=== PATIENT | female | born 1950 | race Caucasian/White ===

== ENCOUNTER 2016-05-04 17:32 | Emergency (ER) | payer BC, MEDICARE ==
--- NOTE | 2016-05-04 18:23 | ED.PDOC ---
History of Present Illness - General Source: patient Exam Limitations: no limitations Additional Information: PT REPORTS TO ED AFTER BEING SENT HERE BY HER PCP WHO NOTED ABNORMAL LABS SUCH ELEVATED BILIRUBIN AND ELEVATED LIVER ENZYMES. PT REPORTS A 5 DAY HISTORY OF INTERMITTENT DIARRHEA, UPPER ABDOMINAL PAIN, BLOATING, AND GAS AFTER EATING AT AN [employer] N[employer]. PT REPORTS THAT SYMPTOMS BEGAN UPON RETURNING HOME FROM [facility]. PT MADE ARRANGEMENTS TO SEE HER PCP EVEN THOUGH SYMPTOMS HAD BEEN GRADUALLY IMPROVING AFTER A FRIEND NOTICED HER EYES WERE JAUNDICED. - History of Present Illness Timing/Duration: 1 week, intermittent Severity: moderate Improving Factors: nothing Worsening Factors: nothing Associated Symptoms: loss of appetite, other - JAUNDICE AND CHANGE IN THE COLOR OF HER URINE. <Rosaura Naylor - Last Filed: 05/04/16 18:20> <Nena Campoverde - Last Filed: 05/04/16 20:28> - General Chief Complaint: Abdominal Pain Stated Complaint: ABNORMAL LABS Time Seen by Provider: 05/04/16 17:59 - History of Present Illness Allergies/Adverse Reactions: Allergies NO KNOWN ALLERGY Allergy (Verified 07/09/12 11:49) Home Medications: Ambulatory Orders Amlodipine Besylate [Norvasc] 5 mg PO HS #0 07/05/12 HYDROcodone 7.5MG/APAP 325MG [[place] 7.5/325] 1 ea PO Q6H PRN #25 tab 07/05/12 Ibuprofen [Motrin] 600 mg PO Q6H PRN #30 tab 07/05/12 Lisinopril 5 mg PO AM #0 07/05/12 Magnesium Hydroxide [Milk Of Magnesia] 30 ml PO DAILY PRN #0 ud 07/05/12 Metoprolol Tartrate 50 mg PO BID #0 07/05/12 Potassium Chloride Tab [Micro-K] 10 meq PO DAILY #0 tab 07/05/12 Review of Systems - Review of Systems Constitutional: Denies: chills, fever EENTM: Denies: nose congestion, throat pain Respiratory: Denies: cough, short of breath Cardiology: Denies: chest pain, palpitations Gastrointestinal/Abdominal: States: see HPI, abdominal pain, diarrhea. Denies: vomiting Genitourinary: States: see HPI, other - CHANGE IN COLOR OF URINE. Denies: dysuria, hematuria Musculoskeletal: Denies: joint pain, joint swelling Skin: Denies: lesions, rash <Rosaura Naylor - Last Filed: 05/04/16 18:20> Past Medical History (General) - Patient Medical History Hx Cardiac Disorders: No Hx Congestive Heart Failure: No Hx Diabetes: No Hx MRSA: No Other Surgeries:: HYSTERECTOMY, BENIGN ABDOMINAL TUMOR REMOVAL. - Social History Hx Tobacco Use: No <Rosaura Naylor - Last Filed: 05/04/16 18:20> Family Medical History - Family History Mother Family History: Unknown <Nena Campoverde - Last Filed: 05/04/16 20:28> Physical Exam - Physical Exam General Appearance: Alert, No apparent distress Eye Exam: bilateral scleral icterus Ears, Nose, Throat: hearing grossly normal Neck: non-tender, normal inspection Respiratory: lungs clear, normal breath sounds, no respiratory distress Cardiovascular/Chest: regular rate, rhythm, no murmur Gastrointestinal/Abdominal: soft, tenderness - MILD EPIGASTRIC Back Exam: normal inspection, no CVA tenderness Extremity: normal range of motion, non-tender, normal inspection Neurologic: normal mood/affect, oriented x 3 Skin Exam: jaundice - SLIGHTLY <Rosaura Naylor - Last Filed: 05/04/16 18:20> Progress - Progress Progress: 05/04/16 20:26 I recommended transfer to [place] with testing done tomorrow, however Patient declined. I have instructed Patient that this is something that needs to be addressed IMMEDIATELY, and she MUST see Dr. Garza tomorrow. Patient agrees to call office in AM. I have sent referral to Dr. Garza. - Results/Orders Results/Orders: 05/04/16 17:55 Temperature 98.6 F Pulse Rate [ 77 LEFT HAND] Respiratory 20 Rate Blood Pressure 174/91 [LEFT BRACHIAL] O2 Sat by Pulse 98 Oximetry 05/04/16 18:02 Hold Metformin x 48Hrs [id number] Labs from PCP: WBC 6.3 Hb 12.6 Hct 35.8 Plt 315 Total bili 6.4 ALT 245 AST [address] ABD/PELV WITH CONTRAST: DILITATION OF COMMON BILE DUCT AND INTRAHEPATIC DUCT RADICALS. - EKG/XRAY/CT CT: Abd/Pelv - results in Results/Orders CT Ordered: Yes CT Interpretation Call Back: No - Report sent <Jude Campoverdea Darrel - Last Filed: 05/04/16 20:28> Departure <Henry Naylormarc Edmundo - Last Filed: 05/04/16 18:20> - Departure Time of Disposition: 20:24 Diet: bland diet <Nena Campoverde Darrel - Last Filed: 05/04/16 20:28> - Departure Clinical Impression: Common bile duct dilatation, Paucity of intrahepatic bile ducts, Total bilirubin, elevated, Elevated liver enzymes Disposition: Discharge to Home or Self Care Condition: Good Departure Forms: ED Discharge - Pt. Copy, Patient Portal Self Enrollment Instructions: DI for Abdominal Pain-Adult Referrals: Erick Garza MD [Primary Care Provider] - 1-2 Days (Needs appt. 05/05/16-- dilitation common bile duct, intrahepatic duct radicals. Patient declined transfer for futher studies. Requires ultrasound vs. MRCP.) Home Medications: Ambulatory Orders Amlodipine Besylate [Norvasc] 5 mg PO HS #0 07/05/12 HYDROcodone 7.5MG/APAP 325MG [[place] 7.5/325] 1 ea PO Q6H PRN #25 tab 07/05/12 Ibuprofen [Motrin] 600 mg PO Q6H PRN #30 tab 07/05/12 Lisinopril 5 mg PO AM #0 07/05/12 Magnesium Hydroxide [Milk Of Magnesia] 30 ml PO DAILY PRN #0 ud 07/05/12 Metoprolol Tartrate 50 mg PO BID #0 07/05/12 Potassium Chloride Tab [Micro-K] 10 meq PO DAILY #0 tab 07/05/12 Additional Instructions: MUST follow up with Dr. Garza TOMORROW. If he is not available, will need to return to ED.
--- NOTE | 2016-05-04 18:53 | CT ---
EXAM DESCRIPTION: Abdomen/Pelvis w/Contrast CLINICAL HISTORY: elevated liver enzymes, diarrhea, jaundice COMPARISON: None Available TECHNIQUE: Contiguous axial images of the abdomen and pelvis were obtained after the administration of intravenous contrast followed by reconstruction images. FINDINGS: Linear opacities within the lungs may represent scar versus subsegmental atelectasis. There is atherosclerosis. There is intrahepatic bile duct dilatation and dilatation of the visualized common bile duct. Questionable abrupt caliber transition at the mid common bile duct. . The liver, spleen, pancreas and kidneys are otherwise within normal limits. There is no hydronephrosis or renal stones. The gallbladder is distended otherwise unremarkable by CT criteria. Adrenal glands are within normal limits. Aorta is of normal caliber and tapering. There is no free fluid in the abdomen or pelvis. There is no bowel obstruction. There is no stranding of the mesenteric fat to suggest an inflammatory response. The appendix is within normal limits. There is no pericecal inflammation. IMPRESSION: Dilatation of the common bile duct and intrahepatic bile duct radicals. Questionable abrupt cut off at the mid common bile duct. Correlation with a sonogram and/or MRCP is recommended for further evaluation. Electronically signed by: Rober Morrow MD 05/04/2016 6:52 PM [employer]
[2016-05-04 19:07] VITALS: O2SAT 98
[2016-05-04 20:58] VITALS: BP 186/65; TEMP 97.6
== END 2016-05-04 19:35 | disposition home or self-care (01) ==
LOC: ER 17:32
DX: K83.8 Other specified diseases of biliary tract (principal); R17 Unspecified jaundice; R74.8 Abnormal levels of other serum enzymes; Z79.899 Other long term (current) drug therapy

== ENCOUNTER → 2016-05-04 | Outpatient (CLI) | payer BC, MEDICARE | LOC: LAB.NP 17:13 | PROVIDERS: ATTEND Nurse Practitioner Family | DX: R10.84 Generalized abdominal pain (principal) ==

== ENCOUNTER → 2016-12-14 | Outpatient (CLI) | payer MEDICARE | END | disposition home or self-care (01) | LOC: GMAB 10:38 | PROVIDERS: ATTEND Family Medicine | DX: E78.2 Mixed hyperlipidemia (principal); I10 Essential (primary) hypertension ==

== ENCOUNTER → 2017-12-28 | Outpatient (CLI) | payer MEDICARE | LOC: GMATM 14:35 | PROVIDERS: ATTEND Nurse Practitioner Family | DX: N39.0 Urinary tract infection, site not specified (principal) ==

== ENCOUNTER → 2018-01-30 | Outpatient (CLI) | payer MEDICARE ==
--- NOTE | 2018-01-30 14:38 | CT ---
EXAM DESCRIPTION: Abdomen/Pelvis w/wo Contrast: Computed Tomography. CLINICAL HISTORY: NAUSEA. Low back pain. Pancreatic cancer. Whipple procedure in 2017. Chemotherapy one year ago. COMPARISON: CT scan prior to Whipple procedure 05/04/2016 TECHNIQUE: Spiral-axial scans at 5 x 5 mm intervals through the abdomen and pelvis before and after nonionic IV contrast. No oral contrast. Coronal and sagittal 2.0 mm reconstructions. 5 mm Delayed helical-axial scans, liver through the pubic symphysis. No adverse reactions. Total Exam DLP 1219.19 mGy - cm. This exam was performed according to our departmental CT dose-optimization program which includes automated exposure control, adjustment of the mA and/or kV according to patient size and/or use of iterative reconstruction technique; to reduce radiation dose to as low as reasonably achievable (ALARA). FINDINGS: Lung bases and pleura: Minimal pleural thickening. No effusion. Coronary artery stents or calcifications. Liver, Stomach, Spleen, Adrenal Glands: Air in the left biliary tree. Small focal densities that were seen on the prior preoperative study are stable. Normal size. No new focal enhancing lesions. Stomach thick-walled but stable since the prior study. Small sliding hiatal hernia. Distal stomach closed end with sutures. Side to side anastomosis of the body with the jejunum. This segment of jejunum is dilated. Proximal closed end duodenum slightly dilated by gas where pancreatic duct stent enters. Third and fourth segment of duodenum normal caliber. Other solid organs are negative. Pancreas, Gallbladder, Ducts: Proximal body and tail of the pancreas are visualized containing a stent which enters the proximal duodenal lumen. Cholecystectomy with duodenum anastomosed to right and left hepatic ducts which contain gas. Kidneys and Ureters: Negative. Mesentery: Stranding of the fat and thickening of the fascia abutting the descending colon. No free air or free fluid. Aorta: Advanced atherosclerotic calcification which is also involving the ostia of the major branch vessels especially the proximal SMA bilateral single renal arteries and SANDRA. Approximately 50% diameter stenosis of the distal aorta just above the bifurcation with significant diameter stenosis of the left common iliac artery more than the right. Small Bowel: Distended by gas mostly in the jejunum with more fluid in the ileum and minimal gas. Terminal Ileum/Cecum: Displaced in the midline and abutting the dome of the anterior urinary bladder. Appendix is not seen. Colon: Displaced to the midline anterior to the spine with splenic flexure medial to the right kidney and transverse colon inferior to the lower poles of both kidneys just below the aortic bifurcation. Diffuse fecal material throughout the colon and especially in the distal descending colon and rectosigmoid which are minimally distended by fecal matter. Thickening of the [place] of the mid descending colon with minimal fatty stranding. No definite diverticula. Pelvic Organs: Urinary bladder markedly distended with no radiodense stones. Bilateral ureters with no radiodense stones. Vaginal cuff is unremarkable. Spine and Bony Pelvis: Again noted is a transitional lumbosacral vertebra which is designated a lumbarized S1 segment based upon counting of ribs with the inferior rib pair designated as originating from T12. No blastic or lytic lesions. Minimal sclerosis in the hip joints. Abdominal Wall/Back Soft Tissues: Surgical scarring in the midline. Minimal diastases but not containing bowel. Small fatty right inguinal hernia not containing bowel. IMPRESSION: 1. Short segment of the descending colon with wall thickening and adjacent fatty stranding and fascial thickening axial series 4, images 26-52. This is a nonspecific colitis, but with appearance of aorta and proximal SMA, cannot exclude ischemic colitis. No free air and no air in the bowel wall. Proximal colonic and distal colonic constipation. Ascending colon and transverse colon displaced 7 with from the prior surgery. Gas and distention of small bowel may be related to bowel stasis in the colon. No free fluid. Consider CTA of the abdominal aorta extending into the bilateral arterial supply of the lower pelvis. 2. Prior Whipple's procedure with resection of the pancreatic head, placement of stent in the pancreatic duct from the pancreatic tail through the duct into the proximal closed end of the duodenum. Cholecystectomy with direct communication of distal intrahepatic ducts into the proximal duodenum. Closed end of the distal stomach with side to side anastomosis of proximal jejunum. Stomach and jejunum are dilated with gas. Electronically signed by: Martín Carlos MD 01/30/2018 2:37 PM CDT
== END ==
LOC: GMAE 14:56
PROVIDERS: ATTEND Family Medicine
DX: K55.1 Chronic vascular disorders of intestine (principal); R30.0 Dysuria; Z90.49 Acquired absence of other specified parts of digestive tract

== ENCOUNTER → 2018-01-31 | Outpatient (CLI) | payer MEDICARE ==
--- NOTE | 2018-01-31 10:13 | CT ---
EXAM DESCRIPTION: CTA Abdomen (accession [id number]), CTA Pelvis (accession [id number]): Computed Tomography. 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 POSSIBLE ISCHEMIC COLITIS. COMPARISON: CT abdomen and pelvis without and with IV contrast 01/30/2018. TECHNIQUE: CT angiography of the abdominal aorta and both lower extremities is performed during rapid bolus administration of IV contrast media. Three-dimensional volume-rendering imaging is reviewed along with helical axial 2.5 x 2.5 mm source images, and 2 x 2 mm coronal and sagittal reformats. Total Exam DLP: Less than 272 mGy-cm. This exam was performed according to our departmental CT dose-optimization program which includes automated exposure control, adjustment of the mA and/or kV according to patient size and/or use of iterative reconstruction technique; to reduce radiation dose to as low as reasonably achievable (ALARA). FINDINGS: Upper abdominal aorta: Moderate atherosclerotic calcification and intimal wall thickening. Proximal celiac trunk physiologic with numerous calcifications noted in the first order branching vessels. Significant calcification of the proximal SMA with approximately 80-90% stenosis within 1.5 of the origin. Approximately 60-70% diameter stenosis approximately 4 cm from the origin. Mid-abdominal aorta: Moderate atherosclerotic calcification and minimal intimal wall thickening. Approximately 30% diameter stenosis of the origin of the single left renal artery. Approximately 25% diameter stenosis of the origin of the single right renal artery. Distal abdominal aorta: Moderate to severe atherosclerotic calcification and intimal wall thickening. 52% diameter stenosis just above the bifurcation, with AP diameter of the lumen 6 mm. Less than 50% diameter stenosis of the origin of the SANDRA by atherosclerotic calcification with no significant atherosclerotic calcification as it courses to the segmental: Coronary artery branches to the splenic flexure and descending colon. Common iliacs: Marked atherosclerotic calcification bilaterally with approximately 65% diameter stenosis of the left common vessel within 2 cm of the bifurcation. Less than 50% diameter stenosis of the proximal 2 cm of the right common vessel with minimal calcification at its bifurcation. Internal iliacs: Long segment of atherosclerotic calcification proximal right internal iliac, but less than 50% diameter stenosis. Approximately 40% diameter stenosis maximum in the left internal vessel prior to the first bifurcation. Right external iliac artery: Less than 50% diameter stenosis by calcification and wall thickening at the mid segment. Right RELAY MOTORMAN: Minimal atherosclerotic narrowing, less than 20% diameter. Right SFA: Only proximal segment was imaged with no significant narrowing. Left external iliac artery: Minimal atherosclerotic narrowing, less than 20% diameter. Left RELAY MOTORMAN: Minimal calcification and narrowing. Left SFA: Only proximal segment was imaged with no significant narrowing. Other: Decreased small intestine gas and decreased fecal matter in the colon compared to the prior study. IMPRESSION: 1. Significant calcification and approximately 80-90% diameter stenosis in the proximal SMA with a 1.5 cm of the origin. Approximately 60-70% diameter stenosis approximately 4 cm from the origin. 2. Less than 50% diameter stenosis of the origin of the SANDRA by calcification, but distal branches to the splenic flexure and descending colon are well filled with contrast. 3. Approximately 50-55% diameter stenosis of the distal abdominal aorta, approximately 6 mm. 4. Approximately 65% diameter stenosis of the left common iliac artery within 2 cm above the bifurcation. Less than 50% diameter stenosis of the proximal 2 cm of the right common iliac. No significant narrowing of the bilateral external iliacs, or bilateral common femoral arteries. 5. Decreased small intestine gas and decreased fecal matter in the colon compared to yesterday's study. Electronically signed by: Martín Carlos MD 01/31/2018 10:11 AM CDT
--- NOTE | 2018-01-31 10:13 | CT ---
EXAM DESCRIPTION: CTA Abdomen (accession [id number]), CTA Pelvis (accession [id number]): Computed Tomography. 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 POSSIBLE ISCHEMIC COLITIS. COMPARISON: CT abdomen and pelvis without and with IV contrast 01/30/2018. TECHNIQUE: CT angiography of the abdominal aorta and both lower extremities is performed during rapid bolus administration of IV contrast media. Three-dimensional volume-rendering imaging is reviewed along with helical axial 2.5 x 2.5 mm source images, and 2 x 2 mm coronal and sagittal reformats. Total Exam DLP: Less than 272 mGy-cm. This exam was performed according to our departmental CT dose-optimization program which includes automated exposure control, adjustment of the mA and/or kV according to patient size and/or use of iterative reconstruction technique; to reduce radiation dose to as low as reasonably achievable (ALARA). FINDINGS: Upper abdominal aorta: Moderate atherosclerotic calcification and intimal wall thickening. Proximal celiac trunk physiologic with numerous calcifications noted in the first order branching vessels. Significant calcification of the proximal SMA with approximately 80-90% stenosis within 1.5 of the origin. Approximately 60-70% diameter stenosis approximately 4 cm from the origin. Mid-abdominal aorta: Moderate atherosclerotic calcification and minimal intimal wall thickening. Approximately 30% diameter stenosis of the origin of the single left renal artery. Approximately 25% diameter stenosis of the origin of the single right renal artery. Distal abdominal aorta: Moderate to severe atherosclerotic calcification and intimal wall thickening. 52% diameter stenosis just above the bifurcation, with AP diameter of the lumen 6 mm. Less than 50% diameter stenosis of the origin of the SANDRA by atherosclerotic calcification with no significant atherosclerotic calcification as it courses to the segmental: Coronary artery branches to the splenic flexure and descending colon. Common iliacs: Marked atherosclerotic calcification bilaterally with approximately 65% diameter stenosis of the left common vessel within 2 cm of the bifurcation. Less than 50% diameter stenosis of the proximal 2 cm of the right common vessel with minimal calcification at its bifurcation. Internal iliacs: Long segment of atherosclerotic calcification proximal right internal iliac, but less than 50% diameter stenosis. Approximately 40% diameter stenosis maximum in the left internal vessel prior to the first bifurcation. Right external iliac artery: Less than 50% diameter stenosis by calcification and wall thickening at the mid segment. Right DIRECTOR OF RETAIL: Minimal atherosclerotic narrowing, less than 20% diameter. Right SFA: Only proximal segment was imaged with no significant narrowing. Left external iliac artery: Minimal atherosclerotic narrowing, less than 20% diameter. Left DIRECTOR OF RETAIL: Minimal calcification and narrowing. Left SFA: Only proximal segment was imaged with no significant narrowing. Other: Decreased small intestine gas and decreased fecal matter in the colon compared to the prior study. IMPRESSION: 1. Significant calcification and approximately 80-90% diameter stenosis in the proximal SMA with a 1.5 cm of the origin. Approximately 60-70% diameter stenosis approximately 4 cm from the origin. 2. Less than 50% diameter stenosis of the origin of the SANDRA by calcification, but distal branches to the splenic flexure and descending colon are well filled with contrast. 3. Approximately 50-55% diameter stenosis of the distal abdominal aorta, approximately 6 mm. 4. Approximately 65% diameter stenosis of the left common iliac artery within 2 cm above the bifurcation. Less than 50% diameter stenosis of the proximal 2 cm of the right common iliac. No significant narrowing of the bilateral external iliacs, or bilateral common femoral arteries. 5. Decreased small intestine gas and decreased fecal matter in the colon compared to yesterday's study. Electronically signed by: Martín Carlos MD 01/31/2018 10:11 AM CDT
== END ==
LOC: CT 07:55
PROVIDERS: ATTEND Family Medicine
DX: K55.1 Chronic vascular disorders of intestine (principal); I70.0 Atherosclerosis of aorta; I70.8 Atherosclerosis of other arteries

== ENCOUNTER 2018-04-02 14:15 | Emergency (ER) | payer MEDICARE ==
[2018-04-02] MEDS ORDERED: ACETAMINOPHEN 325 MG TAB PO ONE (14:54)
[2018-04-02] MEDS ORDERED: KETOROLAC TROMETHAMINE INJ 30 MG/ML VIAL IV ONE (15:07)
[2018-04-02] MEDS ORDERED: METOPROLOL TARTRATE INJ 5 MG/5 ML VIAL IV ONE ×3 (17:46→20:01)
--- NOTE | 2018-04-02 19:01 | CT ---
EXAM DESCRIPTION: Abdomen/Pelvis w/Contrast CLINICAL HISTORY:67 years Female, anorexia, no BM in three days Comparison: None TECHNIQUE: Contiguous axial images of the abdomen and pelvis were obtained followed by reconstruction images. This exam was performed according to our departmental dose-optimization program, which includes automated exposure control, adjustment of the mA and/or kV according to patient size and/or use of iterative reconstruction technique. FINDINGS: Lung bases: Lung bases are clear. Heart: Visualized heart is within normal limits in size. Liver:Unremarkable. No focal liver lesion. Gallbladder:Cholecystectomy clips seen in gallbladder fossa. Pneumobilia remains. Spleen:Unremarkable Pancreas: Pancreatic duct stent again noted. Adrenal glands:Within normal limits. Kidneys/ureters:Within normal limits Bladder:Unremarkable. Pelvic organs: No acute abnormality Vascular structures: Diffuse atherosclerotic vascular disease throughout the aorta and major branches including severe stenosis in the main trunk of the SMA similar in appearance to the previous exam. Peritoneum: No free fluid. Lymph nodes: No abnormal lymph nodes. Stomach/small bowel/colon: Stomach is unremarkable. Small bowel is unremarkable except for postsurgical changes in the proximal portion from Billroth surgery. Colon is unremarkable. Appendix: Appendix not seen with certainty. However, no inflammatory changes or fluid seen in the pericecal region and right lower quadrant. Bones: No acute osseous abnormality. Soft tissues: Unremarkable.. IMPRESSION: No acute intra-abdominal abnormality. 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 Considering provided history of abdominal pain and anorexia, chronic mesenteric ischemia is a consideration. Patient may benefit from revascularization. No findings of acute mesenteric ischemia. No findings of bowel obstruction. Electronically signed by: Jose Mcdonald DO 04/02/2018 7:00 PM [facility]
--- NOTE | 2018-04-02 20:22 | ED.PDOC ---
History of Present Illness - General Chief Complaint: General Stated Complaint: decreased appetite, nausea, back pain Time Seen by Provider: 04/02/18 14:34 Source: patient Exam Limitations: no limitations - History of Present Illness Initial Comments: Patient presents with low back pain. 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 She is scheduled to have that removed in three weeks but has been having pain with eating. She was also told that she had poor circulation through her abdominal aorta and that she needs surgery to correct that. She says that she has had so much pain from eating that she does not want to eat anymore. She has lost 5 pounds in the last month. She denies N/V. Last BM was three days ago. Her blood pressure has been running higher for the last month. She thinks that the pain is from her stent. No other complaints. Timing/Duration: changing over time Severity: moderate Improving Factors: nothing Worsening Factors: eating Associated Symptoms: denies symptoms Allergies/Adverse Reactions: Allergies NO KNOWN ALLERGY Allergy (Verified 04/02/18 14:31) Home Medications: Ambulatory Orders Amlodipine Besylate [Norvasc] 5 mg PO HS #0 07/05/12 HYDROcodone 7.5MG/APAP 325MG [[place] 7.5/325] 1 ea PO Q6H PRN #25 tab 07/05/12 Ibuprofen [Motrin] 600 mg PO Q6H PRN #30 tab 07/05/12 Lisinopril 5 mg PO AM #0 07/05/12 Magnesium Hydroxide [Milk Of Magnesia] 30 ml PO DAILY PRN #0 ud 07/05/12 Metoprolol Tartrate 50 mg PO BID #0 07/05/12 Potassium Chloride Tab [Micro-K] 10 meq PO DAILY #0 tab 07/05/12 Review of Systems - Review of Systems Constitutional: States: no symptoms reported EENTM: States: no symptoms reported Respiratory: States: no symptoms reported Cardiology: States: no symptoms reported Gastrointestinal/Abdominal: States: see HPI Genitourinary: States: no symptoms reported Musculoskeletal: States: no symptoms reported Skin: States: no symptoms reported Neurological: States: no symptoms reported Endocrine: States: no symptoms reported Hematologic/Lymphatic: States: no symptoms reported Past Medical History (General) - Patient Medical History Hx Cardiac Disorders: No Hx Congestive Heart Failure: No Hx Hypertension: Yes Hx Diabetes: No Hx Cancer: Yes - pancreatic Hx MRSA: No - Vaccination History Hx Influenza Vaccination: No Hx Pneumococcal Vaccination: No - Social History Hx Tobacco Use: No Hx Alcohol Use: No Hx Substance Use: No Hx Substance Use Treatment: No Hx Depression: No Family Medical History - Family History Mother Family History: Unknown Physical Exam - Physical Exam General Appearance: Alert Eye Exam: bilateral normal Ears, Nose, Throat: normal ENT inspection Neck: non-tender, full range of motion, supple Respiratory: lungs clear, normal breath sounds Cardiovascular/Chest: normal peripheral pulses, regular rate, rhythm, no edema Gastrointestinal/Abdominal: normal bowel sounds, non tender, soft Back Exam: normal inspection, no CVA tenderness Extremity: normal range of motion, non-tender, normal inspection Neurologic: no motor/sensory deficits, alert, normal mood/affect, oriented x 3 Skin Exam: normal color Lymphatic: no adenopathy Progress - Progress Progress: 04/02/18 20:24 Laboratory Tests 04/02/18 04/02/18 04/02/18 15:16 15:16 16:36 WBC 8.0 RBC 4.13 L Hgb 14.2 Hct 41.4 MCV 100.2 H MCH 34.3 H MCHC 34.3 RDW 13.4 Plt Count 349 MPV 7.6 Absolute Neuts (auto) 6.80 Absolute Lymphs (auto) 0.50 L Absolute Monos (auto) 0.50 Absolute Eos (auto) 0.00 Absolute Basos (auto) 0.10 Neutrophils % 85.2 H Lymphocytes % 6.7 L Monocytes % 6.7 Eosinophils % 0.3 L Basophils % 1.1 Sodium 126 L Potassium 4.2 Chloride 89 L Carbon Dioxide 25 Anion Gap 16.2 BUN 16 Creatinine 0.65 BUN/Creatinine Ratio 24.6 H Random Glucose 117 H Serum Osmolality 255.6 L Lactic Acid Calcium 9.6 Total Bilirubin 1.0 AST 17 ALT 14 Alkaline Phosphatase 70 Serum Total Protein 7.7 Albumin 4.2 Globulin 3.5 Albumin/Globulin Ratio 1.2 Lipase 17 L Urine Color Yellow Urine Appearance Clear Urine pH 5.0 Ur Specific [place] 1.020 Urine Protein Negative Urine Glucose (UA) Negative Urine Ketones >=160 Urine Blood Small H Urine Nitrite Negative Urine Bilirubin Small H Urine Urobilinogen 0.2 Ur Leukocyte Esterase Negative Urine RBC 1-3 Urine WBC 3-5 H Ur Epithelial Cells 3-5 Urine Bacteria Rare Urine Mucus Small 04/02/18 19:13 WBC RBC Hgb Hct MCV MCH MCHC RDW Plt Count MPV Absolute Neuts (auto) Absolute Lymphs (auto) Absolute Monos (auto) Absolute Eos (auto) Absolute Basos (auto) Neutrophils % Lymphocytes % Monocytes % Eosinophils % Basophils % Sodium Potassium Chloride Carbon Dioxide Anion Gap BUN Creatinine BUN/Creatinine Ratio Random Glucose Serum Osmolality Lactic Acid 0.7 Calcium Total Bilirubin AST ALT Alkaline Phosphatase Serum Total Protein Albumin Globulin Albumin/Globulin Ratio Lipase Urine Color Urine Appearance Urine pH Ur Specific [place] Urine Protein Urine Glucose (UA) Urine Ketones Urine Blood Urine Nitrite Urine Bilirubin Urine Urobilinogen Ur Leukocyte Esterase Urine RBC Urine WBC Ur Epithelial Cells Urine Bacteria Urine Mucus CT showed no acute disease. 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 Lactic acid 0.7. wbc wnl. Patient was given toradol 30 mg IV x one. 04/02/18 22:47 I called her surgeon and suggested that this could be abdominal angina from decreased mesenteric circulation. It was agreed that the patient should go to [facility] for likely reparative surgery of the abdominal aorta or SMA. The patient elected to go there by private vehicle. Departure - Departure Clinical Impression: Abdominal angina Disposition: Transfer to Hospital Condition: Fair Departure Forms: ED Discharge - Pt. Copy, Patient Portal Self Enrollment Diet: other - NPO Activity: other - as per your inpatient doctor Referrals: RUTHIE OROZCO MD [Primary Care Provider] - 1-2 Weeks Home Medications: Ambulatory Orders Amlodipine Besylate [Norvasc] 5 mg PO HS #0 07/05/12 HYDROcodone 7.5MG/APAP 325MG [[place] 7.5/325] 1 ea PO Q6H PRN #25 tab 07/05/12 Ibuprofen [Motrin] 600 mg PO Q6H PRN #30 tab 07/05/12 Lisinopril 5 mg PO AM #0 07/05/12 Magnesium Hydroxide [Milk Of Magnesia] 30 ml PO DAILY PRN #0 ud 07/05/12 Metoprolol Tartrate 50 mg PO BID #0 07/05/12 Potassium Chloride Tab [Micro-K] 10 meq PO DAILY #0 tab 07/05/12 Additional Instructions: Do not eat or drink before arriving at [facility] in [place]. See instructions as to where to check in.
[2018-04-02 22:59] VITALS: BP 170/61; TEMP 98.4; O2SAT 98
[2018-04-02] MEDS ORDERED: MORPHINE SULFATE INJ 10 MG/ML VIAL IV ONE (23:02)
== END 2018-04-02 23:30 | disposition short-term general hospital (02) ==
LOC: ER 14:15
DX: K55.1 Chronic vascular disorders of intestine (principal); M54.5 Low back pain; R11.0 Nausea; I10 Essential (primary) hypertension; Z85.07 Personal history of malignant neoplasm of pancreas; Z98.890 Other specified postprocedural states; Z79.899 Other long term (current) drug therapy
CPT/HCPCS: 36415; 74177; 80053; 81001; 83605; 83690; 85025; J1885; J2270

== ENCOUNTER → 2018-05-09 | Outpatient (CLI) | payer MEDICARE | LOC: GMAE 10:29 | PROVIDERS: ATTEND Family Medicine | DX: I10 Essential (primary) hypertension (principal) ==

== ENCOUNTER → 2018-05-20 | Emergency (ER) | payer MEDICARE | LOC: ER 18:32 | DX: Z45.2 Encounter for adjustment and management of vascular access device (principal); Z53.21 Procedure and treatment not carried out due to patient leaving prior to being seen by health care provider ==

== ENCOUNTER → 2018-05-21 | Outpatient (CLI) | payer MEDICARE | LOC: GRHH 15:50 | PROVIDERS: ATTEND Surgery | DX: K55.1 Chronic vascular disorders of intestine (principal); K90.9 Intestinal malabsorption, unspecified; E43 Unspecified severe protein-calorie malnutrition; Z79.899 Other long term (current) drug therapy ==

== ENCOUNTER → 2018-08-08 | Outpatient (CLI) | payer MEDICARE | LOC: GMAE 10:38 | PROVIDERS: ATTEND Family Medicine | DX: I10 Essential (primary) hypertension (principal) ==

== ENCOUNTER → 2019-01-23 | Outpatient (CLI) | payer MEDICARE | LOC: GMAE 12:16 | PROVIDERS: ATTEND Family Medicine | DX: D53.9 Nutritional anemia, unspecified (principal); C25.3 Malignant neoplasm of pancreatic duct ==

== ENCOUNTER → 2019-09-30 | Outpatient (CLI) | payer MEDICARE | LOC: GMAE 10:34 | PROVIDERS: ATTEND Family Medicine | DX: I10 Essential (primary) hypertension (principal); E78.2 Mixed hyperlipidemia ==